=== PATIENT | male | born 1995 | race Caucasian/White ===

== ENCOUNTER 2017-02-05 14:07 | Outpatient (CLI) | payer MEDICAID, OTHER | END 2017-02-05 14:08 | disposition home or self-care (01) | LOC: LAB.N 14:07 | PROVIDERS: ATTEND Physician Assistant Medical | DX: Z91.89 Other specified personal risk factors, not elsewhere classified (principal); R30.0 Dysuria | CPT/HCPCS: 36415; 86803; 87389; 87491; 87591 ==

== ENCOUNTER 2017-02-26 09:14 | Outpatient (CLI) | payer MEDICAID ==
[2017-02-26 13:01] LABS: BASOPHILS # (AUTO) 0.1 10^3/uL (0.0-0.1); BASOPHILS % (AUTO) 1.1 %; EOSINOPHILS # (AUTO) 0.2 10^3/uL (0.0-0.7); EOSINOPHILS % (AUTO) 4.6 %; HCT - HEMATOCRIT 45.3 % (42.0-52.0); HGB - HEMOGLOBIN 15.3 g/dL (14.0-18.0); LYMPHOCYTES # (AUTO) 1.8 10^3/uL (1.5-3.5); LYMPHOCYTES % (AUTO) 37.8 %; MEAN CORPUSCULAR HEMOGLOBIN 30.6 pg (27.0-31.0); MEAN CORPUSCULAR HGB CONC 33.8 g/dL (32.0-36.0); MEAN CORPUSCULAR VOLUME 90.8 fL (80.0-94.0); MEAN PLATELET VOLUME 10.6 fL (7.4-11.4); MONOCYTES # (AUTO) 0.5 10^3/uL (0.0-1.0); MONOCYTES % (AUTO) 10.3 %; NEUTROPHILS # (AUTO) 2.2 10^3/uL (1.5-6.6); NEUTROPHILS % (AUTO) 46.2 %; RED BLOOD COUNT 4.99 10^6/uL (4.70-6.10); RED CELL DISTRIBUTION WIDTH 12.6 % (12.0-15.0); UNCORRECTED WHITE BLOOD COUNT 4.7 x10^3/uL; WHITE BLOOD COUNT 4.7 x10^3/uL (4.8-10.8)
[2017-02-26 13:21] LABS: ALBUMIN/GLOBULIN RATIO 1.9 (1.0-2.2); BILIRUBIN,TOTAL 0.6 mg/dL (0.2-1.0); CALCIUM 9.5 mg/dL (8.5-10.3); CREATININE 0.9 mg/dL (0.6-1.2); POTASSIUM 3.9 mmol/L (3.5-5.0); TOTAL PROTEIN 7.6 g/dL (6.7-8.2)
== END 2017-02-26 09:15 | disposition home or self-care (01) ==
LOC: LAB.N 09:14
PROVIDERS: ATTEND Physician Assistant Medical
DX: R10.31 Right lower quadrant pain (principal); N50.82 Scrotal pain; Z20.2 Contact with and (suspected) exposure to infections with a predominantly sexual mode of transmission; Z91.89 Other specified personal risk factors, not elsewhere classified; R36.9 Urethral discharge, unspecified; R30.0 Dysuria
CPT/HCPCS: 36415; 80053; 85025

== ENCOUNTER 2017-03-05 09:15 | Outpatient (CLI) | payer MEDICAID ==
--- NOTE | 2017-03-05 12:38 | Ultrasound Report ---
RIGHT LOWER QUADRANT ULTRASOUND: 03/05/2017 CLINICAL INDICATION: Right lower quadrant pain. TECHNIQUE: Real-time scanning was performed with marketing development representative static images obtained. FINDINGS: Scanning of the right lower quadrant was performed. The appendix is not confidently visual ized. No adenopathy, free fluid, or bowel wall thickening is identified. IMPRESSION: NONVISUALIZATION OF THE APPENDIX, BUT NO SECONDARY FINDINGS OF ACUTE APPENDICITIS ARE AP PRECIATED. JOB #: [id number] EXT JOB #:[id number]
== END 2017-03-05 09:16 | disposition home or self-care (01) ==
LOC: DI 09:15
PROVIDERS: ATTEND Physician Assistant Medical
DX: R10.31 Right lower quadrant pain (principal); N50.82 Scrotal pain
CPT/HCPCS: 76705